=== PATIENT | male | born 1955 | race Caucasian/White ===

== ENCOUNTER 2017-07-31 10:35 | Inpatient (IN) | payer OTHER ==
[2017-07-31] MEDS: ASPIRIN 325 MG TAB PO (11:05)
[2017-07-31] MEDS: ONDANSETRON 4 MG INJ IV (11:05)
[2017-07-31] MEDS: NITROGLYCERIN (SL) 0.4 MG TAB SL (11:05)
[2017-07-31] MEDS: morphine 2 MG INJ IV (11:06)
[2017-07-31 11:48] LABS: ADD MAN DIFF? NO
[2017-07-31 11:55] LABS: WHITE BLOOD COUNT 5.8 10^3/ul (4.8-10.8)
[2017-07-31 11:55] LABS: BASOPHILS % 0.7 % (0.0-2.0); EOSINOPHILS # 0.3 10^3/ul (0.0-0.5); EOSINOPHILS % 5.4 % (0.0-7.0); HEMATOCRIT 30.9 % (42.0-52.0); HEMOGLOBIN 11.1 g/dl (14.0-18.0); LYMPHOCYTES # 1.3 10^3/ul (0.8-2.9); LYMPHOCYTES % 22.4 % (15.0-51.0); MEAN CORPUSCULAR HEMOGLOBIN 30.6 pg (29.0-33.0); MEAN CORPUSCULAR HGB CONC 35.9 g/dl (32.0-37.0); MEAN CORPUSCULAR VOLUME 85.1 fl (82.0-101.0); MEAN PLATELET VOLUME 10.5 fl (7.4-10.4); MONOCYTE # 0.3 10^3/ul (0.3-0.9); MONOCYTES % 5.2 % (0.0-11.0); NEUTROPHIL # 3.8 10^3/ul (1.6-7.5); NEUTROPHILS % 66.1 % (39.0-77.0); PLATELET COUNT 210 10^3/UL (140-415); RED BLOOD COUNT 3.63 10^6/ul (4.70-6.10); RED CELL DISTRIBUTION WIDTH 12.4 % (11.5-14.5)
[2017-07-31 12:22] LABS: ANION GAP 15 (8-16); BLOOD UREA NITROGEN 29 mg/dl (7-20); CALCIUM 8.6 mg/dl (8.4-10.2); CARBON DIOXIDE 23 mmol/L (21-31); CHLORIDE 99 mmol/L (97-110); CREATININE 2.14 mg/dl (0.61-1.24); SODIUM 133 mmol/L (135-144)
[2017-07-31 12:30] LABS: GLUCOSE 578 mg/dl (70-220)
[2017-07-31 12:33] LABS: B-TYPE NATRIURETIC PEPTIDE 4140 PG/ML (0-125)
[2017-07-31 12:36] LABS: TROPONIN-I < 0.012 ng/ml (0.00-0.12)
[2017-07-31] MEDS ORDERED: DEXTROSE 50% 50 ML SYRINGE IV ×2 (14:30)
[2017-07-31] MEDS ORDERED: GLUCOSE GEL 15 GRAM TUBE PO ×2 (14:30)
[2017-07-31] MEDS ORDERED: GLUCAGON 1 MG INJ IM (14:30)
[2017-07-31] MEDS ORDERED: ONDANSETRON 4 MG INJ IV (14:30)
[2017-07-31] MEDS ORDERED: GLUCOSE GEL 15 GRAM TUBE BUCCAL (14:30)
[2017-07-31] MEDS ORDERED: ACETAMINOPHEN 325 MG TAB PO (14:30)
[2017-07-31] MEDS: FUROSEMIDE 40 MG INJ IV (15:03)
[2017-07-31] MEDS: INSULIN LISPRO 100 UNIT/ML VIAL SC (15:05)
[2017-07-31] MEDS: AMLODIPINE 5 MG TAB PO (16:59)
[2017-07-31] MEDS: INSULIN ASPART [NOVOLOG] 3 ML PEN SC ×3 (17:42→20:30)
[2017-07-31 18:52] LABS: CREATINE KINASE 76 IU/L (23-200)
[2017-07-31 19:05] LABS: CK INDEX 1.5
[2017-07-31 19:10] LABS: CK-MB 1.13 ng/ml (0.0-2.4); TROPONIN-I < 0.012 ng/ml (0.00-0.12)
[2017-07-31] MEDS: HEPARIN 5,000 UNIT/0.5 ML VIAL SC (20:07)
[2017-07-31] MEDS: ATORVASTATIN 40 MG TAB PO (20:19)
[2017-07-31] MEDS: GABAPENTIN 300 MG CAP PO (20:19)
[2017-07-31] MEDS: INSULIN GLARGINE [LANtus] 3 ML PEN SC (20:30)
[2017-07-31 23:12] LABS: CREATINE KINASE 64 IU/L (23-200)
[2017-07-31 23:25] LABS: CK INDEX 1.7
[2017-07-31 23:26] LABS: CK-MB 1.06 ng/ml (0.0-2.4); TROPONIN-I < 0.012 ng/ml (0.00-0.12)
[2017-08-01] MEDS: ACCU-CHEK XX (01:46)
[2017-08-01 06:13] LABS: ADD MAN DIFF? NO
[2017-08-01 06:21] LABS: BASOPHIL # 0.1 10^3/ul (0.0-0.1); BASOPHILS % 0.8 % (0.0-2.0); EOSINOPHILS # 0.5 10^3/ul (0.0-0.5); EOSINOPHILS % 8.4 % (0.0-7.0); HEMATOCRIT 26.7 % (42.0-52.0); HEMOGLOBIN 9.5 g/dl (14.0-18.0); LYMPHOCYTES # 2.3 10^3/ul (0.8-2.9); MEAN CORPUSCULAR HEMOGLOBIN 30.4 pg (29.0-33.0); MEAN CORPUSCULAR HGB CONC 35.6 g/dl (32.0-37.0); MEAN CORPUSCULAR VOLUME 85.6 fl (82.0-101.0); MEAN PLATELET VOLUME 10.5 fl (7.4-10.4); MONOCYTE # 0.3 10^3/ul (0.3-0.9); NEUTROPHILS % 48.6 % (39.0-77.0); PLATELET COUNT 178 10^3/UL (140-415); RED BLOOD COUNT 3.12 10^6/ul (4.70-6.10); RED CELL DISTRIBUTION WIDTH 12.8 % (11.5-14.5)
[2017-08-01 06:21] LABS: WHITE BLOOD COUNT 6.2 10^3/ul (4.8-10.8)
[2017-08-01 06:42] LABS: ALANINE AMINOTRANSFERASE 29 IU/L (13-69); ALBUMIN 2.7 g/dl (3.3-4.9); ALBUMIN/GLOBULIN RATIO 0.87; ALKALINE PHOSPHATASE 143 IU/L (42-121); ANION GAP 11 (8-16); ASPARTATE AMINO TRANSFERASE 17 IU/L (15-46); BLOOD UREA NITROGEN 34 mg/dl (7-20); CALCIUM 8.3 mg/dl (8.4-10.2); CARBON DIOXIDE 24 mmol/L (21-31); CHLORIDE 105 mmol/L (97-110); CREATININE 2.43 mg/dl (0.61-1.24); GLUCOSE 301 mg/dl (70-220); POTASSIUM 4.4 mmol/L (3.5-5.1); SODIUM 136 mmol/L (135-144); TOTAL PROTEIN 5.8 g/dl (6.1-8.1)
[2017-08-01] MEDS: ASPIRIN (EC) 81 MG TAB PO (09:00)
[2017-08-01] MEDS ORDERED: INSULIN GLARGINE [LANtus] 3 ML PEN SC (09:00)
[2017-08-01] MEDS: HEPARIN 5,000 UNIT/0.5 ML VIAL SC (10:39)
[2017-08-01] MEDS: INSULIN ASPART [NOVOLOG] 3 ML PEN SC ×3 (10:41→12:39)
[2017-08-01] MEDS: AMLODIPINE 5 MG TAB PO (12:35)
== END 2017-08-01 17:30 | disposition home or self-care (01) | DRG 305 ==
LOC: E/R 10:35 → MS3 14:06
DX: I16.1 Hypertensive emergency (principal); N17.9 Acute kidney failure, unspecified; E11.22 Type 2 diabetes mellitus with diabetic chronic kidney disease; E11.65 Type 2 diabetes mellitus with hyperglycemia; M94.0 Chondrocostal junction syndrome [Tietze]; R07.9 Chest pain, unspecified; E78.5 Hyperlipidemia, unspecified; I12.9 Hypertensive chronic kidney disease with stage 1 through stage 4 chronic kidney disease, or unspecified chronic kidney disease; N18.9 Chronic kidney disease, unspecified; Z79.4 Long term (current) use of insulin; Z90.49 Acquired absence of other specified parts of digestive tract; Z86.73 Personal history of transient ischemic attack (TIA), and cerebral infarction without residual deficits
CPT/HCPCS: 36415; 71045; 76775; 80048; 80053; 82550; 82553; 82962; 83880; 84484; 85025; 93005; 93306; 96372; 96374; 96375; 99285-25

== ENCOUNTER 2017-09-05 16:37 | Inpatient (IN) | payer OTHER ==
[2017-09-05] MEDS: SOD CHLORIDE 0.9% 500 ML IV (17:23)
[2017-09-05] MEDS: ONDANSETRON 4 MG INJ IV ×2 (17:32→19:20)
[2017-09-05] MEDS: LABETALOL HCL 20MG INJ IV (17:32)
[2017-09-05] MEDS: morphine 4 MG/ML VIAL IV ×2 (17:32→19:20)
[2017-09-05] MEDS: NICARDipine HCL 30 MG CAPSULE PO ×2 (17:33→18:49)
[2017-09-05 17:37] LABS: ADD MAN DIFF? NO
[2017-09-05 17:39] LABS: WHITE BLOOD COUNT 4.6 10^3/ul (4.8-10.8)
[2017-09-05 17:39] LABS: BASOPHILS % 0.9 % (0.0-2.0); EOSINOPHILS # 0.5 10^3/ul (0.0-0.5); EOSINOPHILS % 9.9 % (0.0-7.0); HEMATOCRIT 28.9 % (42.0-52.0); HEMOGLOBIN 10.4 g/dl (14.0-18.0); LYMPHOCYTES # 1.5 10^3/ul (0.8-2.9); MEAN CORPUSCULAR HEMOGLOBIN 31.1 pg (29.0-33.0); MEAN CORPUSCULAR VOLUME 86.5 fl (82.0-101.0); MEAN PLATELET VOLUME 10.2 fl (7.4-10.4); MONOCYTE # 0.6 10^3/ul (0.3-0.9); MONOCYTES % 11.9 % (0.0-11.0); NEUTROPHIL # 2.1 10^3/ul (1.6-7.5); NEUTROPHILS % 44.1 % (39.0-77.0); PLATELET COUNT 217 10^3/UL (140-415); RED BLOOD COUNT 3.34 10^6/ul (4.70-6.10); RED CELL DISTRIBUTION WIDTH 12.4 % (11.5-14.5)
[2017-09-05 17:56] LABS: ANION GAP 12 (8-16); BLOOD UREA NITROGEN 38 mg/dl (7-20); CARBON DIOXIDE 22 mmol/L (21-31); CHLORIDE 104 mmol/L (97-110); CREATININE 2.06 mg/dl (0.61-1.24); POTASSIUM 5.1 mmol/L (3.5-5.1); SODIUM 133 mmol/L (135-144)
[2017-09-05 17:58] LABS: INR 0.91; PROTIME 12.3 Sec (11.9-14.9)
[2017-09-05 17:59] LABS: PARTIAL THROMBOPLASTIN TIME 32.3 Sec (25.0-35.0)
[2017-09-05 18:08] LABS: GLUCOSE 639 mg/dl (70-220)
[2017-09-05 18:09] LABS: TROPONIN-I < 0.012 ng/ml (0.00-0.12)
[2017-09-05] MEDS: INSULIN LISPRO 100 UNIT/ML VIAL SC (18:31)
[2017-09-05] MEDS: hydrALAzine 20 MG INJ IV (18:49)
[2017-09-05] MEDS: LACTATED RINGER'S 500 ML IV (18:56)
[2017-09-05] MEDS ORDERED: SOD CHLORIDE 0.9% 1,000 ML IV ×2 (19:47→22:10)
[2017-09-05] MEDS ORDERED: ACETAMINOPHEN 325 MG TAB PO (20:00)
[2017-09-05] MEDS ORDERED: DILTIAZEM-D5W 125MG/125ML DRIP 125 ML IV (20:00)
[2017-09-05] MEDS ORDERED: ONDANSETRON 4 MG INJ IV (20:00)
[2017-09-05] MEDS ORDERED: GLUCOSE GEL 15 GRAM TUBE PO ×2 (22:00)
[2017-09-05] MEDS ORDERED: GLUCAGON 1 MG INJ IM (22:00)
[2017-09-05] MEDS ORDERED: GLUCOSE GEL 15 GRAM TUBE BUCCAL (22:00)
[2017-09-05] MEDS ORDERED: DEXTROSE 50% 50 ML SYRINGE IV (22:00)
[2017-09-05] MEDS ORDERED: ALBUTEROL/IPRATROPIUM (NEB) 3 ML AMP HHN (22:30)
[2017-09-05] MEDS ORDERED: NACL 0.9% 3 ML SYG IV (22:30)
[2017-09-05] MEDS: INSULIN GLARGINE [LANtus] 3 ML PEN SC (23:09)
[2017-09-05] MEDS: morphine 2 MG INJ IV (23:17)
[2017-09-06] MEDS: SOD CHLORIDE 0.9% 500 ML IV ×5 (00:29→19:45)
[2017-09-06] MEDS: ACCU-CHEK XX (02:00)
[2017-09-06] MEDS ORDERED: ACCU-CHEK XX (02:00)
[2017-09-06] MEDS: PANTOPRAZOLE (EC) 40 MG TAB PO (06:07)
[2017-09-06] MEDS ORDERED: INSULIN ASPART [NOVOLOG] 3 ML PEN SC (07:55)
[2017-09-06] MEDS: INSULIN ASPART [NOVOLOG] 3 ML PEN SC ×8 (07:55→21:00)
[2017-09-06 08:26] LABS: ADD MAN DIFF? NO
[2017-09-06 08:34] LABS: ABNORMAL IP MESSAGE 1; BASOPHILS % 0.5 % (0.0-2.0); EOSINOPHILS # 0.1 10^3/ul (0.0-0.5); HEMOGLOBIN 9.5 g/dl (14.0-18.0); LYMPHOCYTES # 0.6 10^3/ul (0.8-2.9); LYMPHOCYTES % 7.4 % (15.0-51.0); MEAN CORPUSCULAR HEMOGLOBIN 30.4 pg (29.0-33.0); MEAN CORPUSCULAR HGB CONC 35.2 g/dl (32.0-37.0); MEAN CORPUSCULAR VOLUME 86.5 fl (82.0-101.0); MEAN PLATELET VOLUME 10.4 fl (7.4-10.4); MONOCYTE # 0.6 10^3/ul (0.3-0.9); NEUTROPHIL # 6.4 10^3/ul (1.6-7.5); NEUTROPHILS % 82.8 % (39.0-77.0); PLATELET COUNT 203 10^3/UL (140-415); POSITIVE DIFF @See below; RED BLOOD COUNT 3.12 10^6/ul (4.70-6.10)
[2017-09-06 08:34] LABS: WHITE BLOOD COUNT 7.7 10^3/ul (4.8-10.8)
[2017-09-06] MEDS: metFORMIN 850 MG TAB PO (08:36)
[2017-09-06] MEDS: BENAZEPRIL 40 MG TAB PO (08:37)
[2017-09-06] MEDS: HYDROCHLOROTHIAZIDE 25 MG TAB PO (08:37)
[2017-09-06] MEDS: HEPARIN 5,000 UNIT/0.5 ML VIAL SC ×2 (08:42→20:39)
[2017-09-06 08:50] LABS: ALANINE AMINOTRANSFERASE 37 IU/L (13-69); ALBUMIN 2.7 g/dl (3.3-4.9); ALBUMIN/GLOBULIN RATIO 0.87; ALKALINE PHOSPHATASE 149 IU/L (42-121); ANION GAP 12 (8-16); ASPARTATE AMINO TRANSFERASE 38 IU/L (15-46); BLOOD UREA NITROGEN 36 mg/dl (7-20); CALCIUM 8.1 mg/dl (8.4-10.2); CARBON DIOXIDE 21 mmol/L (21-31); CHLORIDE 111 mmol/L (97-110); GLUCOSE 144 mg/dl (70-220); MAGNESIUM 1.7 mg/dl (1.7-2.5); SODIUM 140 mmol/L (135-144); TOTAL PROTEIN 5.8 g/dl (6.1-8.1)
[2017-09-06] MEDS ORDERED: NON-FORMULARY/PATIENT OWN MED (Insulin Lispro (Humalog Kwikpen U-100) 5 UNIT) SQ (09:00)
[2017-09-06] MEDS: LEVOFLOXACIN 500MG/D5W (PMX) 100 ML IVPB (10:41)
[2017-09-06] MEDS: [UNRECOGNIZED DRUG - REMARK] XX (12:35)
[2017-09-06] MEDS: LURASIDONE HCL 20 MG XX (15:42)
[2017-09-06] MEDS: [UNRECOGNIZED DRUG - OTHER] XX (15:42)
[2017-09-06] MEDS: ONDANSETRON 4 MG INJ IV (18:16)
[2017-09-06] MEDS: ACETAMINOPHEN 325 MG TAB PO (18:16)
[2017-09-06] MEDS: hydrALAzine 20 MG INJ IV ×2 (18:19→20:28)
[2017-09-06] MEDS: GABAPENTIN 300 MG CAP PO (20:28)
[2017-09-06] MEDS: INSULIN GLARGINE [LANtus] 3 ML PEN SC (20:39)
[2017-09-06] MEDS ORDERED: INSULIN GLARGINE [LANtus] 3 ML PEN SC (21:00)
[2017-09-06] MEDS ORDERED: NON-FORMULARY/PATIENT OWN MED (Lurasidone Hcl (Latuda) 20 MG) PO (21:00)
[2017-09-06] MEDS: ZOLPIDEM 5 MG TAB PO ×2 (22:00→22:02)
[2017-09-07] MEDS: SOD CHLORIDE 0.45% 1,000 ML IV ×2 (00:03→10:58)
[2017-09-07] MEDS: SOD CHLORIDE 0.9% 500 ML IV ×4 (00:18→15:45)
[2017-09-07] MEDS: ACCU-CHEK XX (02:00)
[2017-09-07] MEDS: PANTOPRAZOLE (EC) 40 MG TAB PO (05:24)
[2017-09-07] MEDS: INSULIN ASPART [NOVOLOG] 3 ML PEN SC ×7 (07:49→20:42)
[2017-09-07] MEDS: LURASIDONE HCL 20 MG XX ×3 (08:00→16:00)
[2017-09-07] MEDS: [UNRECOGNIZED DRUG - OTHER] XX ×3 (08:00→16:00)
[2017-09-07] MEDS: DEXTROSE 50% 50 ML SYRINGE IV (08:10)
[2017-09-07 08:11] LABS: ADD MAN DIFF? NO
[2017-09-07 08:17] LABS: BASOPHILS % 0.5 % (0.0-2.0); EOSINOPHILS # 0.2 10^3/ul (0.0-0.5); EOSINOPHILS % 3.7 % (0.0-7.0); HEMATOCRIT 26.9 % (42.0-52.0); HEMOGLOBIN 9.3 g/dl (14.0-18.0); LYMPHOCYTES # 2.6 10^3/ul (0.8-2.9); LYMPHOCYTES % 39.1 % (15.0-51.0); MEAN CORPUSCULAR HEMOGLOBIN 30.6 pg (29.0-33.0); MEAN CORPUSCULAR HGB CONC 34.6 g/dl (32.0-37.0); MEAN CORPUSCULAR VOLUME 88.5 fl (82.0-101.0); MEAN PLATELET VOLUME 10.3 fl (7.4-10.4); MONOCYTE # 0.7 10^3/ul (0.3-0.9); MONOCYTES % 10.7 % (0.0-11.0); NEUTROPHILS % 45.8 % (39.0-77.0); PLATELET COUNT 220 10^3/UL (140-415); RED BLOOD COUNT 3.04 10^6/ul (4.70-6.10); RED CELL DISTRIBUTION WIDTH 13.2 % (11.5-14.5)
[2017-09-07 08:17] LABS: WHITE BLOOD COUNT 6.5 10^3/ul (4.8-10.8)
[2017-09-07] MEDS: BENAZEPRIL 40 MG TAB PO (08:20)
[2017-09-07] MEDS: HYDROCHLOROTHIAZIDE 25 MG TAB PO (08:20)
[2017-09-07] MEDS: HEPARIN 5,000 UNIT/0.5 ML VIAL SC ×2 (08:24→20:41)
[2017-09-07] MEDS: metFORMIN 850 MG TAB PO (08:26)
[2017-09-07 08:44] LABS: ANION GAP 11 (8-16); BLOOD UREA NITROGEN 35 mg/dl (7-20); CALCIUM 8.1 mg/dl (8.4-10.2); CARBON DIOXIDE 21 mmol/L (21-31); CHLORIDE 111 mmol/L (97-110); CREATININE 2.43 mg/dl (0.61-1.24); MAGNESIUM 1.6 mg/dl (1.7-2.5); PHOSPHORUS 3.3 mg/dl (2.5-4.9); POTASSIUM 4.1 mmol/L (3.5-5.1); SODIUM 139 mmol/L (135-144)
[2017-09-07 08:56] LABS: GLUCOSE 43 mg/dl (70-220)
[2017-09-07] MEDS: LEVOFLOXACIN 250MG/D5W (PMX) 50 ML IVPB (10:58)
[2017-09-07] MEDS ORDERED: NITROGLYCERIN (SL) 0.4 MG TAB SL (12:00)
[2017-09-07] MEDS: hydrALAzine 20 MG INJ IV (12:38)
[2017-09-07 14:57] LABS: CREATINE KINASE 104 IU/L (23-200)
[2017-09-07 15:08] LABS: CK INDEX 1.5; TROPONIN-I 0.038 ng/ml (0.00-0.12)
[2017-09-07 15:17] LABS: CK-MB 1.51 ng/ml (0.0-2.4)
[2017-09-07 18:21] LABS: CREATINE KINASE 69 IU/L (23-200)
[2017-09-07 18:32] LABS: CK INDEX 1.8; TROPONIN-I 0.038 ng/ml (0.00-0.12)
[2017-09-07 18:35] LABS: CK-MB 1.27 ng/ml (0.0-2.4)
[2017-09-07] MEDS: GABAPENTIN 300 MG CAP PO (20:36)
[2017-09-07] MEDS: INSULIN GLARGINE [LANtus] 3 ML PEN SC (20:42)
[2017-09-07] MEDS ORDERED: BENAZEPRIL 20 MG TAB PO (21:00)
[2017-09-07] MEDS: LATUDA 20 MG TAB PO (21:20)
[2017-09-07] MEDS: MAGNESIUM SULFATE 2 GM/50 ML 50 ML IVPB (21:20)
[2017-09-08 00:51] LABS: CREATINE KINASE 62 IU/L (23-200)
[2017-09-08 01:04] LABS: CK INDEX 2.1; TROPONIN-I 0.043 ng/ml (0.00-0.12)
[2017-09-08 01:07] LABS: CK-MB 1.28 ng/ml (0.0-2.4)
[2017-09-08] MEDS: ACCU-CHEK XX (02:00)
[2017-09-08] MEDS: PANTOPRAZOLE (EC) 40 MG TAB PO (06:48)
[2017-09-08] MEDS: INSULIN ASPART [NOVOLOG] 3 ML PEN SC ×7 (07:55→20:47)
[2017-09-08 08:03] LABS: ADD MAN DIFF? NO
[2017-09-08 08:11] LABS: WHITE BLOOD COUNT 4.6 10^3/ul (4.8-10.8)
[2017-09-08 08:11] LABS: BASOPHILS % 0.2 % (0.0-2.0); EOSINOPHILS # 0.2 10^3/ul (0.0-0.5); EOSINOPHILS % 4.4 % (0.0-7.0); HEMATOCRIT 25.8 % (42.0-52.0); HEMOGLOBIN 8.9 g/dl (14.0-18.0); LYMPHOCYTES % 43.3 % (15.0-51.0); MEAN CORPUSCULAR HEMOGLOBIN 30.5 pg (29.0-33.0); MEAN CORPUSCULAR HGB CONC 34.5 g/dl (32.0-37.0); MEAN CORPUSCULAR VOLUME 88.4 fl (82.0-101.0); MEAN PLATELET VOLUME 9.9 fl (7.4-10.4); MONOCYTE # 0.5 10^3/ul (0.3-0.9); MONOCYTES % 10.1 % (0.0-11.0); NEUTROPHIL # 1.9 10^3/ul (1.6-7.5); PLATELET COUNT 191 10^3/UL (140-415); RED BLOOD COUNT 2.92 10^6/ul (4.70-6.10)
[2017-09-08 08:31] LABS: ALBUMIN 2.5 g/dl (3.3-4.9); ANION GAP 11 (8-16); BLOOD UREA NITROGEN 35 mg/dl (7-20); CALCIUM 8.2 mg/dl (8.4-10.2); CARBON DIOXIDE 22 mmol/L (21-31); CHLORIDE 110 mmol/L (97-110); CREATININE 2.46 mg/dl (0.61-1.24); GLUCOSE 73 mg/dl (70-220); SODIUM 139 mmol/L (135-144)
[2017-09-08 08:32] LABS: CHOL/HDL RATIO 3.8 RATIO; HDL CHOLESTEROL 33 mg/dl (30-78); LDL CHOLESTEROL,CALCULATED 67 mg/dl; TRIGLYCERIDES 135 mg/dl (0-149)
[2017-09-08 08:32] LABS: CHOLESTEROL 127 mg/dl (100-200)
[2017-09-08 08:34] LABS: IRON 178 ug/dl (35-150)
[2017-09-08] MEDS: HEPARIN 5,000 UNIT/0.5 ML VIAL SC ×2 (08:38→20:40)
[2017-09-08] MEDS: HYDROCHLOROTHIAZIDE 25 MG TAB PO (08:39)
[2017-09-08 08:43] LABS: % IRON SATURATION 80 % SAT (22-52); TOTAL IRON BINDING CAPACITY 223 ug/dl (241-421)
[2017-09-08] MEDS ORDERED: BENAZEPRIL 40 MG TAB PO (09:00)
[2017-09-08 10:07] LABS: ADD UMIC YES; UR ASCORBIC ACID NEGATIVE (NEGATIVE); UR BACTERIA FEW /HPF (NONE SEEN); UR BILIRUBIN (Dip) NEGATIVE (NEGATIVE); UR BLOOD (Dip) 1+ mg/dL (NEGATIVE); UR CLARITY CLEAR (CLEAR); UR COLOR STRAW (YELLOW); UR GLUCOSE (Dip) 1+ mg/dL (NEGATIVE); UR KETONES (Dip) NEGATIVE (NEGATIVE); UR LEUKOCYTE ESTERASE (Dip) NEGATIVE Leu/ul (NEGATIVE); UR NITRITE (Dip) NEGATIVE (NEGATIVE); UR RBC 2 /HPF (0-5); UR SPECIFIC GRAVITY (Dip) 1.008 (1.003-1.030); UR TOTAL PROTEIN (Dip) 2+ mg/dl (NEGATIVE); UR UROBILINOGEN (Dip) NEGATIVE (NEGATIVE); UR WBC 0 /HPF (0-5)
[2017-09-08 11:38] LABS: CREATININE,URINE RANDOM 43.91 mg/dl (20-370); PROTEIN/CREAT RATIO 1.11 RATIO
[2017-09-08] MEDS: NIFEdipine (XL) 30 MG TAB PO ×2 (12:04→20:34)
[2017-09-08] MEDS: hydrALAzine 20 MG INJ IV (16:28)
[2017-09-08] MEDS: GABAPENTIN 300 MG CAP PO (20:34)
[2017-09-08] MEDS: LATUDA 20 MG TAB PO (20:35)
[2017-09-08] MEDS: traZODone 50 MG TAB PO (20:44)
[2017-09-08] MEDS: INSULIN GLARGINE [LANtus] 3 ML PEN SC (20:46)
[2017-09-09] MEDS: ACCU-CHEK XX (02:00)
[2017-09-09] MEDS: PANTOPRAZOLE (EC) 40 MG TAB PO (06:14)
[2017-09-09 06:51] LABS: ADD MAN DIFF? NO
[2017-09-09 06:58] LABS: BASOPHILS % 0.2 % (0.0-2.0); EOSINOPHILS # 0.2 10^3/ul (0.0-0.5); EOSINOPHILS % 4.3 % (0.0-7.0); HEMATOCRIT 24.8 % (42.0-52.0); HEMOGLOBIN 8.6 g/dl (14.0-18.0); LYMPHOCYTES # 2.4 10^3/ul (0.8-2.9); LYMPHOCYTES % 49.2 % (15.0-51.0); MEAN CORPUSCULAR HEMOGLOBIN 30.9 pg (29.0-33.0); MEAN CORPUSCULAR HGB CONC 34.7 g/dl (32.0-37.0); MEAN CORPUSCULAR VOLUME 89.2 fl (82.0-101.0); MEAN PLATELET VOLUME 9.7 fl (7.4-10.4); MONOCYTE # 0.4 10^3/ul (0.3-0.9); MONOCYTES % 8.9 % (0.0-11.0); NEUTROPHIL # 1.8 10^3/ul (1.6-7.5); NEUTROPHILS % 37.2 % (39.0-77.0); PLATELET COUNT 182 10^3/UL (140-415); RED BLOOD COUNT 2.78 10^6/ul (4.70-6.10); RED CELL DISTRIBUTION WIDTH 12.7 % (11.5-14.5)
[2017-09-09 06:58] LABS: WHITE BLOOD COUNT 4.8 10^3/ul (4.8-10.8)
[2017-09-09 07:31] LABS: ALBUMIN 2.3 g/dl (3.3-4.9); ANION GAP 10 (8-16); BLOOD UREA NITROGEN 42 mg/dl (7-20); CALCIUM 7.8 mg/dl (8.4-10.2); CARBON DIOXIDE 24 mmol/L (21-31); CHLORIDE 111 mmol/L (97-110); CREATININE 2.89 mg/dl (0.61-1.24); GLUCOSE 150 mg/dl (70-220); PHOSPHORUS 4.1 mg/dl (2.5-4.9); POTASSIUM 4.2 mmol/L (3.5-5.1); SODIUM 141 mmol/L (135-144)
[2017-09-09] MEDS: ACETAMINOPHEN 325 MG TAB PO (08:06)
[2017-09-09] MEDS: INSULIN ASPART [NOVOLOG] 3 ML PEN SC ×4 (08:09→12:09)
[2017-09-09] MEDS: HEPARIN 5,000 UNIT/0.5 ML VIAL SC (08:15)
[2017-09-09] MEDS: HYDROCHLOROTHIAZIDE 25 MG TAB PO (08:18)
[2017-09-09] MEDS: NIFEdipine (XL) 30 MG TAB PO (10:17)
[2017-09-09 11:16] LABS: PROTEIN, TOTAL 4.7 g/dL (6.1-8.1)
[2017-09-09 21:04] LABS: PTH CALCIUM 7.7 mg/dL (8.6-10.3)
[2017-09-09 23:26] LABS: ALBUMIN 2.2 g/dL (3.8-4.8); ALPHA-1-GLOBULINS 0.3 g/dL (0.2-0.3); BETA 2 GLOBULINS 0.4 g/dL (0.2-0.5); BETA GLOBULINS 0.3 g/dL (0.4-0.6); GAMMA GLOBULINS 0.6 g/dL (0.8-1.7)
[2017-09-10 08:36] LABS: PTH INTACT 111 pg/mL (14-64)
== END 2017-09-09 12:43 | disposition home or self-care (01) | DRG 304 ==
LOC: TEL 21:15 → E/R 16:37 → TEL 19:48
DX: I16.1 Hypertensive emergency (principal); J15.9 Unspecified bacterial pneumonia; N17.9 Acute kidney failure, unspecified; E11.21 Type 2 diabetes mellitus with diabetic nephropathy; I50.30 Unspecified diastolic (congestive) heart failure; E87.1 Hypo-osmolality and hyponatremia; I13.0 Hypertensive heart and chronic kidney disease with heart failure and stage 1 through stage 4 chronic kidney disease, or unspecified chronic kidney disease; E11.39 Type 2 diabetes mellitus with other diabetic ophthalmic complication; E11.65 Type 2 diabetes mellitus with hyperglycemia; E11.22 Type 2 diabetes mellitus with diabetic chronic kidney disease; N18.9 Chronic kidney disease, unspecified; J45.909 Unspecified asthma, uncomplicated; E78.5 Hyperlipidemia, unspecified; E11.42 Type 2 diabetes mellitus with diabetic polyneuropathy; D63.1 Anemia in chronic kidney disease; I65.23 Occlusion and stenosis of bilateral carotid arteries; J06.9 Acute upper respiratory infection, unspecified; Z79.4 Long term (current) use of insulin
CPT/HCPCS: 36415; 71045; 71250; 76775; 80048; 80053; 80061; 80069; 81001; 81003; 82550; 82553; 82570; 82728; 82962; 83540; 83735; 83970; 84100; 84155; 84165; 84484; 85025; 85610; 85730; 87400; 93005; 93880; 96361; 96372; 96374; 96375; 96376; 99285-25

== ENCOUNTER 2017-12-20 16:52 | Inpatient (IN) | payer OTHER ==
[2017-12-20 17:16] LABS: ADD MAN DIFF? NO
[2017-12-20 17:22] LABS: BASOPHIL # 0.1 10^3/ul (0.0-0.1); BASOPHILS % 0.7 % (0.0-2.0); EOSINOPHILS # 0.6 10^3/ul (0.0-0.5); EOSINOPHILS % 7.6 % (0.0-7.0); HEMATOCRIT 29.7 % (42.0-52.0); HEMOGLOBIN 10.6 g/dl (14.0-18.0); LYMPHOCYTES % 26.3 % (15.0-51.0); MEAN CORPUSCULAR HEMOGLOBIN 30.5 pg (29.0-33.0); MEAN CORPUSCULAR HGB CONC 35.7 g/dl (32.0-37.0); MEAN CORPUSCULAR VOLUME 85.6 fl (82.0-101.0); MEAN PLATELET VOLUME 10.1 fl (7.4-10.4); MONOCYTE # 0.6 10^3/ul (0.3-0.9); MONOCYTES % 7.6 % (0.0-11.0); NEUTROPHIL # 4.3 10^3/ul (1.6-7.5); NEUTROPHILS % 57.4 % (39.0-77.0); PLATELET COUNT 257 10^3/UL (140-415); RED BLOOD COUNT 3.47 10^6/ul (4.70-6.10); RED CELL DISTRIBUTION WIDTH 12.6 % (11.5-14.5)
[2017-12-20 17:22] LABS: WHITE BLOOD COUNT 7.4 10^3/ul (4.8-10.8)
[2017-12-20 17:43] LABS: INR 0.93; PROTIME 12.5 Sec (11.9-14.9)
[2017-12-20 17:44] LABS: PARTIAL THROMBOPLASTIN TIME 32.6 Sec (25.0-35.0)
[2017-12-20 17:45] LABS: ALANINE AMINOTRANSFERASE 21 IU/L (13-69); ALBUMIN 3.6 g/dl (3.3-4.9); ALBUMIN/GLOBULIN RATIO 1.05; ALKALINE PHOSPHATASE 167 IU/L (42-121); ANION GAP 13 (8-16); ASPARTATE AMINO TRANSFERASE 21 IU/L (15-46); BILIRUBIN,INDIRECT 0.2 mg/dl (0-1.1); BILIRUBIN,TOTAL 0.2 mg/dl (0.2-1.3); BLOOD UREA NITROGEN 43 mg/dl (7-20); CALCIUM 8.4 mg/dl (8.4-10.2); CARBON DIOXIDE 19 mmol/L (21-31); CHLORIDE 111 mmol/L (97-110); CREATINE KINASE 187 IU/L (23-200); CREATININE 3.53 mg/dl (0.61-1.24); GLUCOSE 288 mg/dl (70-220); POTASSIUM 4.5 mmol/L (3.5-5.1); SODIUM 138 mmol/L (135-144)
[2017-12-20] MEDS: ASPIRIN 325 MG TAB PO (17:50)
[2017-12-20] MEDS: NITROGLYCERIN (SL) 0.4 MG TAB SL (17:51)
[2017-12-20 17:56] LABS: B-TYPE NATRIURETIC PEPTIDE 3540 PG/ML (0-125); CK INDEX 1.1
[2017-12-20 17:58] LABS: TROPONIN-I < 0.012 ng/ml (0.000-0.120)
[2017-12-20] MEDS ORDERED: ACETAMINOPHEN 325 MG TAB PO (18:30)
[2017-12-20] MEDS ORDERED: ONDANSETRON 4 MG INJ IV (18:30)
[2017-12-20] MEDS: IPRATROPIUM (NEB) 0.5 MG/2.5 ML AMP INH (18:40)
[2017-12-20] MEDS: ALBUTEROL 0.5% (NEB) 2.5 MG/0.5 ML AMP INH (18:40)
[2017-12-20] MEDS: FUROSEMIDE 40 MG INJ IV (19:05)
[2017-12-20] MEDS ORDERED: GLUCOSE GEL 15 GRAM TUBE BUCCAL (20:00)
[2017-12-20] MEDS ORDERED: NACL 0.9% 3 ML SYG IV (20:00)
[2017-12-20] MEDS ORDERED: OXYCODONE/ACETAMINOPHEN (5/325) TAB PO (20:00)
[2017-12-20] MEDS ORDERED: GLUCOSE GEL 15 GRAM TUBE PO ×2 (20:00)
[2017-12-20] MEDS ORDERED: morphine 2 MG INJ IV (20:00)
[2017-12-20] MEDS ORDERED: GLUCAGON 1 MG INJ IM (20:00)
[2017-12-20] MEDS ORDERED: DEXTROSE 50% 50 ML SYRINGE IV ×2 (20:00)
[2017-12-20] MEDS: ALBUTEROL/IPRATROPIUM (NEB) 3 ML AMP HHN (22:06)
[2017-12-20] MEDS: FERROUS SULFATE (EC) 325 MG TAB PO (22:39)
[2017-12-20] MEDS: HEPARIN 5,000 UNIT/0.5 ML VIAL SC (23:39)
[2017-12-21] MEDS: ALBUTEROL/IPRATROPIUM (NEB) 3 ML AMP HHN ×3 (02:00→14:52)
[2017-12-21] MEDS: INSULIN ASPART [NOVOLOG] 3 ML PEN SC ×5 (03:16→12:21)
[2017-12-21] MEDS: INSULIN GLARGINE [LANtus] 3 ML PEN SC (03:16)
[2017-12-21 06:13] LABS: ADD MAN DIFF? NO
[2017-12-21 06:18] LABS: WHITE BLOOD COUNT 4.9 10^3/ul (4.8-10.8)
[2017-12-21 06:18] LABS: BASOPHILS % 0.8 % (0.0-2.0); EOSINOPHILS # 0.5 10^3/ul (0.0-0.5); EOSINOPHILS % 9.8 % (0.0-7.0); HEMATOCRIT 26.4 % (42.0-52.0); HEMOGLOBIN 9.3 g/dl (14.0-18.0); LYMPHOCYTES # 1.9 10^3/ul (0.8-2.9); LYMPHOCYTES % 38.9 % (15.0-51.0); MEAN CORPUSCULAR HEMOGLOBIN 30.5 pg (29.0-33.0); MEAN CORPUSCULAR HGB CONC 35.2 g/dl (32.0-37.0); MEAN CORPUSCULAR VOLUME 86.6 fl (82.0-101.0); MEAN PLATELET VOLUME 9.6 fl (7.4-10.4); MONOCYTE # 0.4 10^3/ul (0.3-0.9); MONOCYTES % 8.8 % (0.0-11.0); NEUTROPHILS % 41.5 % (39.0-77.0); PLATELET COUNT 218 10^3/UL (140-415); RED BLOOD COUNT 3.05 10^6/ul (4.70-6.10); RED CELL DISTRIBUTION WIDTH 12.5 % (11.5-14.5)
[2017-12-21 06:31] LABS: HEMOGLOBIN A1C 10.6 % (0-5.9)
[2017-12-21 06:41] LABS: ALANINE AMINOTRANSFERASE 21 IU/L (13-69); ALBUMIN 3.1 g/dl (3.3-4.9); ALBUMIN/GLOBULIN RATIO 1.03; ALKALINE PHOSPHATASE 130 IU/L (42-121); ANION GAP 13 (8-16); ASPARTATE AMINO TRANSFERASE 13 IU/L (15-46); BILIRUBIN,INDIRECT 0.3 mg/dl (0-1.1); BILIRUBIN,TOTAL 0.3 mg/dl (0.2-1.3); BLOOD UREA NITROGEN 40 mg/dl (7-20); CARBON DIOXIDE 22 mmol/L (21-31); CHLORIDE 111 mmol/L (97-110); CREATININE 3.53 mg/dl (0.61-1.24); GLUCOSE 110 mg/dl (70-220); POTASSIUM 3.6 mmol/L (3.5-5.1); SODIUM 142 mmol/L (135-144); TOTAL PROTEIN 6.1 g/dl (6.1-8.1)
[2017-12-21] MEDS ORDERED: ENOXAPARIN 30 MG/0.3 ML SYG SC (09:00)
[2017-12-21] MEDS: AMLODIPINE 10 MG TAB PO (09:04)
[2017-12-21] MEDS: FERROUS SULFATE (EC) 325 MG TAB PO (09:05)
[2017-12-21] MEDS: HEPARIN 5,000 UNIT/0.5 ML VIAL SC (09:11)
[2017-12-21 12:01] LABS: TROPONIN-I < 0.012 ng/ml (0.000-0.120)
[2017-12-21] MEDS ORDERED: morphine LIQ (10 MG/5 ML) CUP PO (15:00)
== END 2017-12-21 16:50 | disposition home or self-care (01) | DRG 313 ==
LOC: E/R 16:52 → TEL 18:22
DX: R07.89 Other chest pain (principal); N17.9 Acute kidney failure, unspecified; I13.0 Hypertensive heart and chronic kidney disease with heart failure and stage 1 through stage 4 chronic kidney disease, or unspecified chronic kidney disease; I12.9 Hypertensive chronic kidney disease with stage 1 through stage 4 chronic kidney disease, or unspecified chronic kidney disease; E11.22 Type 2 diabetes mellitus with diabetic chronic kidney disease; N18.3 Chronic kidney disease, stage 3 (moderate); J45.909 Unspecified asthma, uncomplicated; E78.5 Hyperlipidemia, unspecified; E11.65 Type 2 diabetes mellitus with hyperglycemia; I50.9 Heart failure, unspecified; Z79.4 Long term (current) use of insulin; Z90.49 Acquired absence of other specified parts of digestive tract
CPT/HCPCS: 71045; 80053; 82550; 82553; 82962; 83036; 83880; 84484; 85025; 85610; 85730; 93005; 93970; 94640; 94644; 94664; 96374; 99285-25

== ENCOUNTER 2018-02-23 23:40 | Inpatient (IN) | payer OTHER ==
[2018-02-24 01:28] LABS: ADD MAN DIFF? NO
[2018-02-24 01:30] LABS: BASOPHILS % 0.5 % (0.0-2.0); EOSINOPHILS # 0.6 10^3/ul (0.0-0.5); EOSINOPHILS % 8.5 % (0.0-7.0); HEMATOCRIT 27.8 % (42.0-52.0); HEMOGLOBIN 9.8 g/dl (14.0-18.0); LYMPHOCYTES # 2.7 10^3/ul (0.8-2.9); LYMPHOCYTES % 36.4 % (15.0-51.0); MEAN CORPUSCULAR HEMOGLOBIN 30.1 pg (29.0-33.0); MEAN CORPUSCULAR HGB CONC 35.3 g/dl (32.0-37.0); MEAN CORPUSCULAR VOLUME 85.3 fl (82.0-101.0); MEAN PLATELET VOLUME 9.4 fl (7.4-10.4); MONOCYTE # 0.7 10^3/ul (0.3-0.9); MONOCYTES % 9.3 % (0.0-11.0); NEUTROPHIL # 3.3 10^3/ul (1.6-7.5); NEUTROPHILS % 45.2 % (39.0-77.0); PLATELET COUNT 226 10^3/UL (140-415); RED BLOOD COUNT 3.26 10^6/ul (4.70-6.10); RED CELL DISTRIBUTION WIDTH 12.2 % (11.5-14.5)
[2018-02-24 01:30] LABS: WHITE BLOOD COUNT 7.3 10^3/ul (4.8-10.8)
[2018-02-24 01:38] LABS: ADD UMIC YES; UR ASCORBIC ACID NEGATIVE (NEGATIVE); UR BILIRUBIN (Dip) NEGATIVE (NEGATIVE); UR BLOOD (Dip) 1+ mg/dL (NEGATIVE); UR CLARITY CLEAR (CLEAR); UR COLOR STRAW (YELLOW); UR GLUCOSE (Dip) 1+ mg/dL (NEGATIVE); UR KETONES (Dip) NEGATIVE (NEGATIVE); UR LEUKOCYTE ESTERASE (Dip) NEGATIVE Leu/ul (NEGATIVE); UR MUCUS FEW /HPF (NONE SEEN); UR NITRITE (Dip) NEGATIVE (NEGATIVE); UR RBC 0 /HPF (0-5); UR SPECIFIC GRAVITY (Dip) 1.006 (1.003-1.030); UR TOTAL PROTEIN (Dip) 2+ mg/dl (NEGATIVE); UR UROBILINOGEN (Dip) NEGATIVE (NEGATIVE); UR WBC 1 /HPF (0-5)
[2018-02-24 01:49] LABS: INR 0.94; PROTIME 12.7 Sec (11.9-14.9)
[2018-02-24 01:50] LABS: PARTIAL THROMBOPLASTIN TIME 33.1 Sec (25.0-35.0)
[2018-02-24] MEDS: ACETAMINOPHEN 325 MG TAB PO (01:50)
[2018-02-24 01:52] LABS: ALANINE AMINOTRANSFERASE 17 IU/L (13-69); ALBUMIN/GLOBULIN RATIO 1.11; ALKALINE PHOSPHATASE 153 IU/L (42-121); ANION GAP 15 (8-16); ASPARTATE AMINO TRANSFERASE 15 IU/L (15-46); BLOOD UREA NITROGEN 66 mg/dl (7-20); CALCIUM 7.9 mg/dl (8.4-10.2); CARBON DIOXIDE 22 mmol/L (21-31); CHLORIDE 106 mmol/L (97-110); CHOL/HDL RATIO 3.6 RATIO; CHOLESTEROL 130 mg/dl (100-200); CREATININE 4.54 mg/dl (0.61-1.24); GLUCOSE 110 mg/dl (70-220); HDL CHOLESTEROL 36 mg/dl (30-78); LDL CHOLESTEROL,CALCULATED 51 mg/dl; POTASSIUM 4.5 mmol/L (3.5-5.1); SODIUM 138 mmol/L (135-144); TOTAL PROTEIN 7.6 g/dl (6.1-8.1); TRIGLYCERIDES 213 mg/dl (0-149)
[2018-02-24 02:03] LABS: TROPONIN-I < 0.010 ng/ml (0.000-0.120)
[2018-02-24 02:06] LABS: AMPHETAMINE/METHAMPHETAMINE NEGATIVE (NEGATIVE); BARBITURATES NEGATIVE (NEGATIVE); BENZODIAZEPINES NEGATIVE (NEGATIVE); CANNABINOIDS NEGATIVE (NEGATIVE); COCAINE NEGATIVE (NEGATIVE); OPIATES NEGATIVE (NEGATIVE)
[2018-02-24 02:22] LABS: HEMOGLOBIN A1C 9.9 % (0-5.9)
[2018-02-24] MEDS ORDERED: NON-FORMULARY/PATIENT OWN MED (Insulin Lispro (Humalog Kwikpen U-100) 5 UNIT) SQ (08:00)
[2018-02-24] MEDS ORDERED: GLUCOSE GEL 15 GRAM TUBE BUCCAL (10:30)
[2018-02-24] MEDS ORDERED: GLUCAGON 1 MG INJ IM (10:30)
[2018-02-24] MEDS ORDERED: DEXTROSE 50% 50 ML SYRINGE IV ×2 (10:30)
[2018-02-24] MEDS ORDERED: GLUCOSE GEL 15 GRAM TUBE PO ×2 (10:30)
[2018-02-24] MEDS: AMLODIPINE 10 MG TAB PO (10:41)
[2018-02-24] MEDS: CHOLECALCIFEROL 1,000 UNIT TAB PO (10:41)
[2018-02-24] MEDS: FERROUS SULFATE (EC) 325 MG TAB PO (10:41)
[2018-02-24] MEDS: LORAZEPAM 2 MG INJ IV (12:20)
[2018-02-24] MEDS: HEPARIN 5,000 UNIT/0.5 ML VIAL SC (13:10)
[2018-02-24] MEDS: INSULIN ASPART [NOVOLOG] 3 ML PEN SC (13:10)
[2018-02-24 15:02] LABS: ADD MAN DIFF? NO
[2018-02-24] MEDS: ASPIRIN 81 MG TAB PO (15:03)
[2018-02-24] MEDS: PANTOPRAZOLE (EC) 40 MG TAB PO (15:03)
[2018-02-24 15:04] LABS: BASOPHILS % 0.6 % (0.0-2.0); EOSINOPHILS # 0.4 10^3/ul (0.0-0.5); EOSINOPHILS % 7.2 % (0.0-7.0); HEMATOCRIT 25.8 % (42.0-52.0); HEMOGLOBIN 9.3 g/dl (14.0-18.0); LYMPHOCYTES # 1.6 10^3/ul (0.8-2.9); LYMPHOCYTES % 30.2 % (15.0-51.0); MEAN CORPUSCULAR HEMOGLOBIN 30.8 pg (29.0-33.0); MEAN CORPUSCULAR VOLUME 85.4 fl (82.0-101.0); MEAN PLATELET VOLUME 10.3 fl (7.4-10.4); MONOCYTE # 0.5 10^3/ul (0.3-0.9); MONOCYTES % 8.5 % (0.0-11.0); NEUTROPHIL # 2.9 10^3/ul (1.6-7.5); NEUTROPHILS % 53.3 % (39.0-77.0); PLATELET COUNT 212 10^3/UL (140-415); RED BLOOD COUNT 3.02 10^6/ul (4.70-6.10); RED CELL DISTRIBUTION WIDTH 12.2 % (11.5-14.5)
[2018-02-24 15:04] LABS: WHITE BLOOD COUNT 5.4 10^3/ul (4.8-10.8)
[2018-02-24 15:24] LABS: CHOLESTEROL 121 mg/dl (100-200)
[2018-02-24 15:24] LABS: CHOL/HDL RATIO 3.5 RATIO; HDL CHOLESTEROL 34 mg/dl (30-78); LDL CHOLESTEROL,CALCULATED 55 mg/dl; TRIGLYCERIDES 162 mg/dl (0-149)
[2018-02-24 15:25] LABS: ALANINE AMINOTRANSFERASE 18 IU/L (13-69); ALBUMIN 3.2 g/dl (3.3-4.9); ALKALINE PHOSPHATASE 137 IU/L (42-121); ANION GAP 14 (8-16); ASPARTATE AMINO TRANSFERASE 15 IU/L (15-46); BLOOD UREA NITROGEN 64 mg/dl (7-20); CALCIUM 7.8 mg/dl (8.4-10.2); CARBON DIOXIDE 21 mmol/L (21-31); CHLORIDE 108 mmol/L (97-110); CREATININE 4.18 mg/dl (0.61-1.24); GLUCOSE 232 mg/dl (70-220); POTASSIUM 4.5 mmol/L (3.5-5.1); SODIUM 138 mmol/L (135-144); TOTAL PROTEIN 6.4 g/dl (6.1-8.1)
[2018-02-24] MEDS ORDERED: GABAPENTIN 300 MG CAP PO (21:00)
[2018-02-24] MEDS ORDERED: ATORVASTATIN 10 MG TAB PO (21:00)
[2018-02-24] MEDS ORDERED: INSULIN GLARGINE [LANTus] (100 UNITS/ML) SYG SC (21:00)
== END 2018-02-24 17:06 | disposition home or self-care (01) | DRG 69 ==
LOC: E/R 23:40 → MS3 02-24 03:51
DX: G45.9 Transient cerebral ischemic attack, unspecified (principal); I12.0 Hypertensive chronic kidney disease with stage 5 chronic kidney disease or end stage renal disease; N18.5 Chronic kidney disease, stage 5; R44.0 Auditory hallucinations; E78.5 Hyperlipidemia, unspecified; J45.909 Unspecified asthma, uncomplicated; E11.22 Type 2 diabetes mellitus with diabetic chronic kidney disease; Z79.4 Long term (current) use of insulin; Z79.82 Long term (current) use of aspirin; Z86.73 Personal history of transient ischemic attack (TIA), and cerebral infarction without residual deficits
CPT/HCPCS: 36415; 70450; 70551; 71045; 80053; 80061; 80307; 81001; 82962; 83036; 84484; 85025; 85610; 85730; 93005; 93306; 93880; 99285-25

== ENCOUNTER 2018-04-28 18:25 | Emergency (ER) | payer SELFPAY, OTHER | END 2018-04-28 22:36 | disposition left against medical advice (07) | LOC: E/R 18:25 | DX: Z53.21 Procedure and treatment not carried out due to patient leaving prior to being seen by health care provider (principal) ==

== ENCOUNTER 2018-04-29 10:19 | Inpatient (IN) | payer OTHER ==
[2018-04-29] MEDS: ASPIRIN 81 MG TAB PO (10:57)
[2018-04-29] MEDS: NITROGLYCERIN (SL) 0.4 MG TAB SL (10:58)
[2018-04-29] MEDS: FUROSEMIDE 40 MG INJ IV ×2 (10:58→20:08)
[2018-04-29 11:10] LABS: WHITE BLOOD COUNT 5.3 10^3/ul (4.8-10.8)
[2018-04-29 11:10] LABS: ADD MAN DIFF? NO; BASOPHILS % 0.8 % (0.0-2.0); EOSINOPHILS # 0.5 10^3/ul (0.0-0.5); EOSINOPHILS % 9.6 % (0.0-7.0); HEMATOCRIT 27.1 % (42.0-52.0); HEMOGLOBIN 9.5 g/dl (14.0-18.0); LYMPHOCYTES # 1.2 10^3/ul (0.8-2.9); LYMPHOCYTES % 23.4 % (15.0-51.0); MEAN CORPUSCULAR HGB CONC 35.1 g/dl (32.0-37.0); MEAN CORPUSCULAR VOLUME 85.5 fl (82.0-101.0); MONOCYTE # 0.4 10^3/ul (0.3-0.9); MONOCYTES % 7.7 % (0.0-11.0); NEUTROPHIL # 3.1 10^3/ul (1.6-7.5); NEUTROPHILS % 58.3 % (39.0-77.0); PLATELET COUNT 221 10^3/UL (140-415); RED BLOOD COUNT 3.17 10^6/ul (4.70-6.10)
[2018-04-29 11:44] LABS: CREATINE KINASE 122 IU/L (23-200)
[2018-04-29 11:52] LABS: CK INDEX 2.1; CK-MB 2.57 ng/ml (0.0-2.4); TROPONIN-I < 0.012 ng/ml (0.000-0.120)
[2018-04-29] MEDS: NITROGLYCERIN 2% 1 GM OINT PKT TD (12:01)
[2018-04-29 13:20] LABS: ANION GAP 13 (5-13); BLOOD UREA NITROGEN 59 mg/dl (7-20); CALCIUM 9.2 mg/dl (8.4-10.2); CARBON DIOXIDE 17 mmol/L (21-31); CHLORIDE 107 mmol/L (97-110); CREATININE 4.63 mg/dl (0.61-1.24); Estimated GFR 13 mL/min (>60); POTASSIUM 5.1 mmol/L (3.5-5.1); SODIUM 137 mmol/L (135-144)
[2018-04-29 13:30] LABS: GLUCOSE 401 mg/dl (70-220)
[2018-04-29 13:32] LABS: TROPONIN-I < 0.012 ng/ml (0.000-0.120)
[2018-04-29 13:44] LABS: LACTIC ACID 0.7 mmol/L (0.5-2.0)
[2018-04-29] MEDS: CEFTRIAXONE 1 GM/50 ML (PMX) 50 ML IVPB (14:26)
[2018-04-29] MEDS: AZITHROMYCIN 500MG/NS (PMX) 250 ML IVPB (14:37)
[2018-04-29] MEDS: INSULIN LISPRO 100 UNIT/ML VIAL SC (14:37)
[2018-04-29] MEDS ORDERED: ACETAMINOPHEN 325 MG TAB PO ×2 (16:00→18:30)
[2018-04-29] MEDS ORDERED: ONDANSETRON 4 MG INJ IV (16:00)
[2018-04-29 17:51] LABS: CREATINE KINASE 112 IU/L (23-200)
[2018-04-29 18:03] LABS: CK INDEX 1.9; CK-MB 2.16 ng/ml (0.0-2.4); TROPONIN-I < 0.012 ng/ml (0.000-0.120)
[2018-04-29] MEDS ORDERED: NACL 0.9% 3 ML SYG IV (18:30)
[2018-04-29] MEDS ORDERED: ALBUTEROL/IPRATROPIUM (NEB) 3 ML AMP HHN (18:30)
[2018-04-29] MEDS ORDERED: hydrOXYzine HCL 25 MG TAB PO (18:30)
[2018-04-29] MEDS ORDERED: NITROGLYCERIN (SL) 0.4 MG TAB SL (18:30)
[2018-04-29] MEDS ORDERED: BISACODYL 10 MG SUPP PR (18:30)
[2018-04-29] MEDS ORDERED: GLUCOSE GEL 15 GRAM TUBE PO ×2 (19:00)
[2018-04-29] MEDS ORDERED: DEXTROSE 50% 50 ML SYRINGE IV ×2 (19:00)
[2018-04-29] MEDS ORDERED: GLUCAGON 1 MG INJ IM (19:00)
[2018-04-29] MEDS ORDERED: GLUCOSE GEL 15 GRAM TUBE BUCCAL (19:00)
[2018-04-29] MEDS: ATORVASTATIN 20 MG TAB PO (22:08)
[2018-04-29] MEDS: GABAPENTIN 300 MG CAP PO (22:08)
[2018-04-29] MEDS: FERROUS SULFATE (EC) 325 MG TAB PO (22:09)
[2018-04-29] MEDS: FAMOTIDINE 20 MG TAB PO (22:09)
[2018-04-29] MEDS: INSULIN GLARGINE [LANTus] (100 UNITS/ML) SYG SC (22:19)
[2018-04-29] MEDS: INSULIN ASPART [NOVOLOG] 3 ML PEN SC (22:19)
[2018-04-30] MEDS: hydrALAzine 20 MG INJ IV (01:19)
[2018-04-30] MEDS: ACCU-CHEK XX (02:51)
[2018-04-30] MEDS: INSULIN ASPART [NOVOLOG] 3 ML PEN SC ×5 (03:30→21:00)
[2018-04-30 05:42] LABS: ADD MAN DIFF? NO
[2018-04-30 05:51] LABS: BASOPHILS % 0.8 % (0.0-2.0); EOSINOPHILS # 0.4 10^3/ul (0.0-0.5); EOSINOPHILS % 7.3 % (0.0-7.0); HEMOGLOBIN 8.1 g/dl (14.0-18.0); LYMPHOCYTES # 1.3 10^3/ul (0.8-2.9); LYMPHOCYTES % 24.7 % (15.0-51.0); MEAN CORPUSCULAR HEMOGLOBIN 29.9 pg (29.0-33.0); MEAN CORPUSCULAR HGB CONC 35.2 g/dl (32.0-37.0); MEAN CORPUSCULAR VOLUME 84.9 fl (82.0-101.0); MEAN PLATELET VOLUME 10.1 fl (7.4-10.4); MONOCYTE # 0.5 10^3/ul (0.3-0.9); MONOCYTES % 10.3 % (0.0-11.0); NEUTROPHILS % 56.7 % (39.0-77.0); PLATELET COUNT 195 10^3/UL (140-415); RED BLOOD COUNT 2.71 10^6/ul (4.70-6.10); RED CELL DISTRIBUTION WIDTH 13.2 % (11.5-14.5)
[2018-04-30 05:51] LABS: WHITE BLOOD COUNT 5.2 10^3/ul (4.8-10.8)
[2018-04-30 06:05] LABS: INR 1.08; PARTIAL THROMBOPLASTIN TIME 30.8 Sec (23.0-35.0); PROTIME 14.1 Sec (11.9-14.9); PT RATIO 1.1
[2018-04-30 06:29] LABS: ALANINE AMINOTRANSFERASE 9 IU/L (13-69); ALBUMIN 2.8 g/dl (3.3-4.9); ALKALINE PHOSPHATASE 124 IU/L (42-121); ANION GAP 12 (5-13); ASPARTATE AMINO TRANSFERASE 11 IU/L (15-46); BLOOD UREA NITROGEN 59 mg/dl (7-20); CALCIUM 8.7 mg/dl (8.4-10.2); CARBON DIOXIDE 17 mmol/L (21-31); CHLORIDE 109 mmol/L (97-110); CHOL/HDL RATIO 3.8 RATIO; CHOLESTEROL 99 mg/dl (100-200); CREATININE 4.64 mg/dl (0.61-1.24); Estimated GFR 13 mL/min (>60); GLUCOSE 312 mg/dl (70-220); HDL CHOLESTEROL 26 mg/dl (30-78); LDL CHOLESTEROL,CALCULATED 46 mg/dl; MAGNESIUM 2.2 mg/dl (1.7-2.5); POTASSIUM 4.7 mmol/L (3.5-5.1); SODIUM 138 mmol/L (135-144); TOTAL PROTEIN 5.9 g/dl (6.1-8.1); TRIGLYCERIDES 134 mg/dl (0-149)
[2018-04-30 07:57] LABS: HEMOGLOBIN A1C 8.7 % (0-5.9)
[2018-04-30] MEDS ORDERED: AZITHROMYCIN 250 MG TAB PO (09:00)
[2018-04-30] MEDS ORDERED: ALBUMIN HUMAN 25% 100 ML IV (09:30)
[2018-04-30] MEDS ORDERED: SODIUM CHLORIDE 0.9% 1L BAG IV (09:30)
[2018-04-30] MEDS: FUROSEMIDE 40 MG INJ IV (10:41)
[2018-04-30] MEDS ORDERED: HEPARIN 1000 UNITS/ML 10 ML INJ (12:33)
[2018-04-30] MEDS ORDERED: LIDOCAINE 2% (MDV) 20 ML INJ (12:33)
[2018-04-30] MEDS ORDERED: FENTAnyl 50 MCG/ML VIAL (12:48)
[2018-04-30] MEDS ORDERED: MIDAZOLAM 1 MG/ML 2 ML INJ (12:49)
[2018-04-30] MEDS: AMLODIPINE 10 MG TAB PO (14:32)
[2018-04-30] MEDS: CHOLECALCIFEROL 1,000 UNIT TAB PO (14:33)
[2018-04-30] MEDS: CEFTRIAXONE 1 GM/50 ML (PMX) 50 ML IVPB (14:33)
[2018-04-30] MEDS: CALCITRIOL 0.25 MCG CAP PO (14:33)
[2018-04-30] MEDS: FERROUS SULFATE (EC) 325 MG TAB PO ×2 (14:33→21:36)
[2018-04-30] MEDS: ASPIRIN 81 MG TAB PO (14:33)
[2018-04-30 16:50] LABS: HEPATITIS B SURFACE ANTIGEN NEGATIVE (NEGATIVE)
[2018-04-30 17:07] LABS: HEPATITIS B SURFACE ANTIBODY NEGATIVE (NEGATIVE)
[2018-04-30] MEDS: HEPARIN 1000 UNITS/ML 10 ML INJ CATHETER (17:53)
[2018-04-30] MEDS: morphine 2 MG INJ IV (18:41)
[2018-04-30] MEDS: ATORVASTATIN 20 MG TAB PO (21:36)
[2018-04-30] MEDS: GABAPENTIN 300 MG CAP PO (21:36)
[2018-04-30] MEDS: FAMOTIDINE 20 MG TAB PO (21:36)
[2018-04-30] MEDS: INSULIN GLARGINE [LANTus] (100 UNITS/ML) SYG SC (22:59)
[2018-05-01] MEDS: ACCU-CHEK XX (02:00)
[2018-05-01] MEDS: hydrALAzine 20 MG INJ IV (06:51)
[2018-05-01] MEDS: INSULIN ASPART [NOVOLOG] 3 ML PEN SC ×4 (07:44→20:54)
[2018-05-01] MEDS: ASPIRIN 81 MG TAB PO (09:02)
[2018-05-01] MEDS: ONDANSETRON 4 MG INJ IV (09:02)
[2018-05-01] MEDS: CHOLECALCIFEROL 1,000 UNIT TAB PO (09:03)
[2018-05-01] MEDS: FERROUS SULFATE (EC) 325 MG TAB PO ×2 (09:03→20:47)
[2018-05-01] MEDS: AMLODIPINE 10 MG TAB PO (09:03)
[2018-05-01] MEDS: HEPARIN 1000 UNITS/ML 10 ML INJ CATHETER (16:07)
[2018-05-01] MEDS: EPOETIN 3000 UNITS/1 ML INJ (ESRD) SC (17:35)
[2018-05-01] MEDS: GABAPENTIN 300 MG CAP PO (20:47)
[2018-05-01] MEDS: ATORVASTATIN 20 MG TAB PO (20:47)
[2018-05-01] MEDS: INSULIN GLARGINE [LANTus] (100 UNITS/ML) SYG SC (20:55)
[2018-05-01] MEDS: FAMOTIDINE 20 MG TAB PO (21:48)
[2018-05-01] MEDS: MAGNESIUM HYDROXIDE 30ML CUP PO (21:48)
[2018-05-02] MEDS: ACCU-CHEK XX (02:26)
[2018-05-02 06:28] LABS: ADD MAN DIFF? NO
[2018-05-02 06:33] LABS: BASOPHILS % 0.7 % (0.0-2.0); EOSINOPHILS # 0.5 10^3/ul (0.0-0.5); EOSINOPHILS % 8.2 % (0.0-7.0); HEMATOCRIT 28.8 % (42.0-52.0); HEMOGLOBIN 9.8 g/dl (14.0-18.0); LYMPHOCYTES # 1.8 10^3/ul (0.8-2.9); LYMPHOCYTES % 32.2 % (15.0-51.0); MEAN CORPUSCULAR HEMOGLOBIN 29.9 pg (29.0-33.0); MEAN CORPUSCULAR VOLUME 87.8 fl (82.0-101.0); MEAN PLATELET VOLUME 9.7 fl (7.4-10.4); MONOCYTE # 0.8 10^3/ul (0.3-0.9); MONOCYTES % 14.5 % (0.0-11.0); NEUTROPHIL # 2.5 10^3/ul (1.6-7.5); PLATELET COUNT 221 10^3/UL (140-415); RED BLOOD COUNT 3.28 10^6/ul (4.70-6.10); RED CELL DISTRIBUTION WIDTH 13.2 % (11.5-14.5)
[2018-05-02 06:33] LABS: WHITE BLOOD COUNT 5.7 10^3/ul (4.8-10.8)
[2018-05-02 07:00] LABS: ANION GAP 8 (5-13); BLOOD UREA NITROGEN 19 mg/dl (7-20); CALCIUM 8.9 mg/dl (8.4-10.2); CARBON DIOXIDE 31 mmol/L (21-31); CHLORIDE 103 mmol/L (97-110); CREATININE 3.08 mg/dl (0.61-1.24); Estimated GFR 21 mL/min (>60); GLUCOSE 103 mg/dl (70-220); POTASSIUM 4.5 mmol/L (3.5-5.1); SODIUM 142 mmol/L (135-144)
[2018-05-02 07:16] LABS: MAGNESIUM 2.2 mg/dl (1.7-2.5)
[2018-05-02 07:16] LABS: PHOSPHORUS 3.8 mg/dl (2.5-4.9)
[2018-05-02] MEDS: INSULIN ASPART [NOVOLOG] 3 ML PEN SC ×4 (07:53→20:36)
[2018-05-02] MEDS: ASPIRIN 81 MG TAB PO (08:48)
[2018-05-02] MEDS: CHOLECALCIFEROL 1,000 UNIT TAB PO (08:48)
[2018-05-02] MEDS: AMLODIPINE 10 MG TAB PO (08:48)
[2018-05-02] MEDS: FERROUS SULFATE (EC) 325 MG TAB PO ×2 (12:11→20:31)
[2018-05-02] MEDS: DOCUSATE SODIUM 100 MG CAP PO (12:11)
[2018-05-02] MEDS: MAGNESIUM HYDROXIDE 30ML CUP PO (17:26)
[2018-05-02] MEDS: GABAPENTIN 300 MG CAP PO (20:30)
[2018-05-02] MEDS: ATORVASTATIN 20 MG TAB PO (20:31)
[2018-05-02] MEDS: FAMOTIDINE 20 MG TAB PO (20:31)
[2018-05-02] MEDS: INSULIN GLARGINE [LANTus] (100 UNITS/ML) SYG SC (20:42)
[2018-05-03] MEDS: ACCU-CHEK XX (01:50)
[2018-05-03 06:27] LABS: ANION GAP 9 (5-13); BLOOD UREA NITROGEN 28 mg/dl (7-20); CALCIUM 8.4 mg/dl (8.4-10.2); CARBON DIOXIDE 26 mmol/L (21-31); CHLORIDE 103 mmol/L (97-110); CREATININE 4.01 mg/dl (0.61-1.24); Estimated GFR 15 mL/min (>60); GLUCOSE 166 mg/dl (70-220); POTASSIUM 3.9 mmol/L (3.5-5.1); SODIUM 138 mmol/L (135-144)
[2018-05-03 06:30] LABS: PHOSPHORUS 4.3 mg/dl (2.5-4.9)
[2018-05-03 06:30] LABS: MAGNESIUM 2.2 mg/dl (1.7-2.5)
[2018-05-03] MEDS: INSULIN ASPART [NOVOLOG] 3 ML PEN SC ×3 (08:23→12:00)
[2018-05-03] MEDS: CALCITRIOL 0.25 MCG CAP PO (09:00)
[2018-05-03] MEDS: CHOLECALCIFEROL 1,000 UNIT TAB PO (09:00)
[2018-05-03] MEDS: AMLODIPINE 10 MG TAB PO (09:00)
[2018-05-03] MEDS: FERROUS SULFATE (EC) 325 MG TAB PO (09:00)
[2018-05-03] MEDS: ASPIRIN 81 MG TAB PO (09:00)
[2018-05-03] MEDS: HEPARIN 1000 UNITS/ML 10 ML INJ CATHETER (12:31)
== END 2018-05-03 18:00 | disposition home or self-care (01) | DRG 673 ==
LOC: E/R 10:19 → 6WM 15:41
PROC: 0JHD3XZ Insertion of Tunneled Vascular Access Device into Right Upper Arm Subcutaneous Tissue and Fascia, Percutaneous Approach (ICD-10-PCS; principal; 2018-04-30 12:39)
PROC: 05HM33Z Insertion of Infusion Device into Right Internal Jugular Vein, Percutaneous Approach (ICD-10-PCS; 2018-04-30 12:39)
PROC: B5131ZA Fluoroscopy of Right Jugular Veins using Low Osmolar Contrast, Guidance (ICD-10-PCS; 2018-04-30 12:39)
PROC: 5A1D70Z Performance of Urinary Filtration, Intermittent, Less than 6 Hours Per Day (ICD-10-PCS; 2018-04-30 12:39)
DX: I12.0 Hypertensive chronic kidney disease with stage 5 chronic kidney disease or end stage renal disease (principal); J81.0 Acute pulmonary edema; N18.6 End stage renal disease; N17.9 Acute kidney failure, unspecified; E87.70 Fluid overload, unspecified; E11.22 Type 2 diabetes mellitus with diabetic chronic kidney disease; E11.65 Type 2 diabetes mellitus with hyperglycemia; Z99.2 Dependence on renal dialysis; Z79.4 Long term (current) use of insulin
CPT/HCPCS: 36415; 71045; 76775; 80048; 80053; 80061; 82550; 82553; 82962; 83036; 83605; 83735; 84100; 84484; 85025; 85610; 85730; 86706; 87040; 87340; 90935; 93005; 93306; 93971; 96372; 96374; 96375; 99285-25

== ENCOUNTER 2019-03-21 20:16 | Emergency (ER) | payer MEDICARE, OTHER ==
[2019-03-21 21:54] LABS: ADD MAN DIFF? NO
[2019-03-21] MEDS: OXYCODONE/ACETAMINOPHEN (5/325) TAB PO (21:56)
[2019-03-21 21:57] LABS: BASOPHILS % 0.6 % (0.0-2.0); EOSINOPHILS # 0.3 10^3/ul (0.0-0.5); EOSINOPHILS % 4.7 % (0.0-7.0); HEMATOCRIT 38.5 % (42.0-52.0); HEMOGLOBIN 13.5 g/dl (14.0-18.0); LYMPHOCYTES # 3.4 10^3/ul (0.8-2.9); LYMPHOCYTES % 47.2 % (15.0-51.0); MEAN CORPUSCULAR HGB CONC 35.1 g/dl (32.0-37.0); MEAN CORPUSCULAR VOLUME 88.3 fl (82.0-101.0); MEAN PLATELET VOLUME 11.1 fl (7.4-10.4); MONOCYTE # 0.5 10^3/ul (0.3-0.9); MONOCYTES % 7.1 % (0.0-11.0); NEUTROPHIL # 2.9 10^3/ul (1.6-7.5); NEUTROPHILS % 40.1 % (39.0-77.0); POSITIVE DIFF @See below; RED BLOOD COUNT 4.36 10^6/ul (4.70-6.10); RED CELL DISTRIBUTION WIDTH 11.6 % (11.5-14.5)
[2019-03-21 21:57] LABS: WHITE BLOOD COUNT 7.2 10^3/ul (4.8-10.8)
[2019-03-21 22:05] LABS: ALANINE AMINOTRANSFERASE 17 IU/L (13-69); ALBUMIN 4.9 g/dl (3.3-4.9); ALBUMIN/GLOBULIN RATIO 1.19; ALKALINE PHOSPHATASE 140 IU/L (42-121); ANION GAP 12 (5-13); ASPARTATE AMINO TRANSFERASE 45 IU/L (15-46); BILIRUBIN,INDIRECT 0.3 mg/dl (0-1.1); BILIRUBIN,TOTAL 0.3 mg/dl (0.2-1.3); BLOOD UREA NITROGEN 23 mg/dl (7-20); CALCIUM 9.7 mg/dl (8.4-10.2); CARBON DIOXIDE 31 mmol/L (21-31); CHLORIDE 97 mmol/L (97-110); CREATININE 3.45 mg/dl (0.61-1.24); Estimated GFR 18 mL/min (>60); GLUCOSE 118 mg/dl (70-220); LIPASE 22 U/L (23-300); POTASSIUM 3.9 mmol/L (3.5-5.1); SODIUM 140 mmol/L (135-144)
[2019-03-21 22:14] LABS: PLATELET COUNT 134 10^3/UL (140-415)
[2019-03-21 22:16] LABS: TROPONIN-I < 0.012 ng/ml (0.000-0.120)
== END 2019-03-22 00:15 | disposition home or self-care (01) ==
LOC: E/R 03-22 00:15
DX: R07.9 Chest pain, unspecified (principal); I13.2 Hypertensive heart and chronic kidney disease with heart failure and with stage 5 chronic kidney disease, or end stage renal disease; I50.9 Heart failure, unspecified; N18.6 End stage renal disease; E11.9 Type 2 diabetes mellitus without complications; Z79.4 Long term (current) use of insulin; Z79.82 Long term (current) use of aspirin; Z86.73 Personal history of transient ischemic attack (TIA), and cerebral infarction without residual deficits
CPT/HCPCS: 36415; 71045; 80053; 83690; 84484; 85025; 93005; 99285-25